=== PATIENT | male | born 1965 | race Hispanic/Latino ===

== ENCOUNTER 2024-01-30 23:13 | Emergency (ER) | payer SELFPAY ==
[2024-01-31 00:46] LABS: PT Prothrombin Time 11.4 SECONDS (9.4-12.5); Protime INR 1.02
[2024-01-31 00:49] LABS: Absolute Eosinophils 0.2 K/uL (0-0.5); Absolute Lymphocytes (CBC) 1.7 K/uL (0.7-4.9); Absolute Monocytes 0.6 K/uL (0.1-1.3); Absolute Neutrophil 4.4 K/uL (1.8-8.0); Basophils % 0.5 % (0-1.3); Eosinophils % 2.5 % (0-4.4); Hematocrit 45.8 % (39.6-49.0); Hemoglobin 15.3 g/dL (13.6-17.9); Lymphocytes % 24.1 % (15.3-44.8); MCH 27.3 pg (27.0-35.0); MCHC 33.5 g/dL (32.0-36.0); MCV 81.4 fL (80-100); MPV 10.2 fL (7.6-11.3); Monocytes % 9.1 % (3.3-12.3); Neutrophils % 63.8 % (41.7-73.7); Nucleated Red Blood Cells % 0.1 % (0-0); Platelets 179 thou/uL (152-406); RBC Red Blood Cell Count 5.62 M/uL (4.33-5.43)
--- NOTE | 2024-01-31 00:55 | ER ---
Nurse's Notes [facility] Name: Lee Salguero Age: 58 yrs Sex: Male : 1965 Arrival Date: 01/30/2024 Time: 23:13 Bed 2 Private MD: Diagnosis: Traumatic subdural hemorrhage;Weakness-Right Arm and Right Leg Presentation: 01/29 23:53 Chief complaint: Patient states: Pain in back of head with movement after a fall off of vc1 the second step of a ladder on week ago. Coronavirus screen: Client denies travel out of the [place] in the last 14 days. Ebola Screen: Patient negative for fever greater than or equal to 101.5 degrees Fahrenheit, and additional compatible Ebola Virus Disease symptoms Patient denies exposure to infectious person. Patient denies travel to an Ebola-affected area in the 21 days before illness onset. No symptoms or risks identified at this time. Initial Sepsis Screen: Does the patient meet any 2 criteria? No. Patient's initial sepsis screen is negative. Does the patient have a suspected source of infection? No. Patient's initial sepsis screen is negative. Risk Assessment: Do you want to hurt yourself or someone else? Patient reports no desire to harm self or others. Onset of symptoms was January 26, 2024. Care prior to arrival: None. Mechanism of Injury: Fall down 2 steps. 23:53 Method Of Arrival: Ambulatory vc1 23:53 Acuity: YOSEF 2 vc1 Historical: - Allergies: 23:57 No Known Allergies; vc1 - Home Meds: 23:57 None [Active]; vc1 - PMHx: 23:57 None; vc1 - PSHx: 23:57 None; vc1 - Immunization history:: Client reports having NOT received the Covid vaccine. - Infectious Disease History:: Denies. - Social history:: Smoking status: Patient denies any tobacco usage or history of. Screenin/31 00:40 [facility] ED Fall Risk Assessment (Adult) History of falling in the last 3 months, mt4 including since admission Yes- single mechanical fall (1 pt) Confusion or Disorientation No (0 pts) Intoxicated or Sedated No (0 pts) Impaired Gait Yes (1 pt) Mobility Assist Device Used No (0 pt) Altered Elimination Score/Fall Risk Level. Abuse screen: Denies injuries from another. Nutritional screening: No deficits noted. Tuberculosis screening: No symptoms or risk factors identified. Exposure risk/Travel Screening: None identified. Primary Survey: 01:04 NO uncontrolled hemorrhage observed. kd3 Assessment: 00:40 General: Appears in no apparent distress. comfortable, well groomed, Behavior is calm, mt4 cooperative, appropriate for age. Pain: Denies pain. Neuro: Level of Consciousness is awake, alert, obeys commands, Oriented to person, place, time, situation, Development Technical Lead are weak on right Weakness in right arm(s) leg(s) Speech slowed speech . Facial symmetry appears normal, Cardiovascular: Capillary refill < 3 seconds. Respiratory: Airway is patent. GI: Abdomen is round non-distended, Abd is non tender. : Denies burning with urination. Derm: Skin is intact, Skin is dry, Skin is pink, warm \T\ dry. Skin temperature is warm. Musculoskeletal: Capillary refill < 3 seconds, Range of motion: right sided weakness in upper and lower extremity. 00:40 Neuro:. mt4 01:23 Reassessment: life flight arrived to tow picker patient and transfer to [facility]. Medications mt4 leaving with patient, sodium chloride 1000ml bolus, keppra 1000mg in 100ml NS 0.9% and mannitol, mannitol was set up but life flight personnel stated they will take over the medication and administration as they have their own machine. patient remains alert and orientated x 4, breathing observed regular and unlabored, Report given to Karena IVORY at [facility]. Vital Signs: 01/29 23:53 BP 136 / 93; Pulse 62; Resp 18; Temp 97; Pulse Ox 98% ; Weight 99.79 kg; Height 5 ft. 8 vc1 in. ; 01/30 00:24 BP 140 / 96; Pulse 54; Resp 16; Temp 97.8; Pulse Ox 99% on R/A; af3 00:40 BP 112 / 73; Pulse 54; Resp 18 S; Temp 97.8(O); Pulse Ox 99% on R/A; Pain 0/10; mt4 01:03 BP 112 / 73; Pulse 55; Resp 16; Pulse Ox 99% on R/A; kd3 01:04 Weight 99.79 kg (R); Height 5 ft. 8 in. ; mt4 01:04 Body Mass Index 33.45 (99.79 kg, 172.72 cm) mt4 00:40 Pain Scale: Adult mt4 Vitals: 00:40 Cardiac Rhythm Assessment Sinus selwyn. mt4 [place] Coma Score: 00:40 Eye Response: spontaneous(4). Motor Response: obeys commands(6). Verbal Response: mt4 oriented(5). Total: 15. Trauma Score (Adult): 00:40 Eye Response: spontaneous(1); Verbal Response: oriented(1); Motor Response: obeys mt4 commands(2); Systolic BP: > 89 mm Hg(4); Respiratory Rate: 10 to 29 per min(4); Christopher Score: 15; Trauma Score: 12 NIH Stroke Scale Scores: 01:00 NIHSS Score: 6 mt4 ED Course: 01/29 23:21 Patient arrived in ED. gm2 23:38 Luis Miguel Santana PA is PHCP. cp 23:38 Wesley Wei MD is Attending Physician. cp 23:57 Triage completed. vc1 23:57 Arm band placed on right wrist. vc1 01/30 00:22 Chanda Saleem, RN is Primary Nurse. kd3 00:23 Inserted saline lock: 20 gauge in right antecubital area, using aseptic technique. af3 Blood collected. Flushed with 10 mL NS. 00:23 Basic Metabolic Panel Sent. af3 00:23 CBC with Diff Sent. af3 00:23 LFT's Sent. af3 00:23 Magnesium Sent. af3 00:23 PT-INR Sent. af3 00:23 Troponin HS Sent. af3 00:24 CT Head C Spine In Process Unspecified. EDMS 00:40 No apparent distress. Resting quietly. transfer approval from receiving facility. mt4 00:40 Allergy band placed. Fall risk band placed. Placed in gown. Bed in low position. Call mt4 light in reach. Side rails up X 1. Adult w/ patient. Provided Education on: fall education, transfer education . Client placed on continuous cardiac and pulse oximetry monitoring. NIBP monitoring applied. traffic monitor specialist on. Pulse ox on. Noise minimized. Lights dimmed. Warm blanket given. Pillow given. Verbal reassurance given. Head of bed elevated. 00:40 No provider procedures requiring assistance completed. Inserted saline lock: 20 gauge mt4 in left antecubital area, using aseptic technique. Flushed with 10 mL NS. Patient maintains SpO2 saturation greater than 95% on room air. 00:43 XRAY Chest (1 view) In Process Unspecified. EDMS 01:32 Patient transferred, IV remains in place. Patient maintains SpO2 saturation greater mt4 than 95% on room air. Administered Medications: 01:14 Drug: Keppra IV 1000 mg IV at calculated rate once Route: IV; Rate: calculated rate; kd3 Site: left antecubital; 01:18 Follow up: IV Status: Infusion continued upon transfer mt4 01:19 Follow up: IV Status: Infusion continued upon transfer mt4 01:14 Drug: Mannitol IV 25% 0.5 g/kg IV at per protocol once; Administer over 2-6 hours kd3 Route: IV; Rate: per protocol; Site: right antecubital; 01:14 Drug: NS 0.9% IV 1000 ml IV at 1 bolus Per protocol; 1000 mL bolus Route: IV; Rate: 1 kd3 bolus; Site: left antecubital; 01:18 Follow up: IV Status: Infusion continued upon transfer mt4 Medication: 00:40 VIS not applicable for this client. mt4 Intake: 01:04 PO: 0ml; Total: 0ml. mt4 Outcome: 00:55 ER care complete, transfer ordered by MD. trammell 01:32 Transferred by helicopter to [facility], mt4 01:32 Condition: stable 01:32 Instructed on the need for transfer, Demonstrated understanding of instructions, follow-up care, medications, 01:35 Patient left the ED. mt4 NIH Stroke Scale - NIH Stroke Score Date: 01/31/2024 Time: 01:00 Total Score = 6 10. Dysarthria (speech clarity - read or repeat words) - 0(Normal) 11. Extinction and Inattention (visual/tactile/auditory/spatial/personal) - 0(No abnormality) 1a. Level of Consciousness (LOC) - 0(Alert) 1b. Level of Consciousness (LOC) (Month \T\ Age) - 0(Both) 1c. LOC Commands (Open \T\ Closes Eyes/Project Consultant) - 0(Both) 2. Best Gaze (Lateral Gaze Paresis) - 0(Normal) 3. Visual Field Loss - 0(No visual loss) 4. Facial Palsy - 1(Minor Paralysis) 5a. Left Arm: Motor (10-second hold) - 0(No drift) 5b. Right Arm: Motor (10-second hold) - 2(Drift, some effort against gravity) 6a. Left Leg: Motor (5-second hold - always test supine) - 0(No drift) 6b. Right Leg: Motor (5-second hold - always test supine) - 1(Drift) 7. Limb Ataxia (finger/nose \T\ heel/hyde - test with eyes open) - 1(Present in one limb) 8. Sensory Loss (pinprick arms/legs/face) - 1(Mild to moderate loss) 9. Best Language: Aphasia (description/naming/reading) - 0(No aphasia) Initials: mt4 Signatures: Dispatcher [employer] EDMS Luis Miguel Santana PA PA cp Doucette, Kyli, RN RN kd3 Kiana Bolden RN RN vc1 Nicole Shabazz gm2 Jennifer Rebolledo RN RN mt4 Carola Pruett3
--- NOTE | 2024-01-31 00:56 | EDPHYS ---
Physician Documentation [facility] Name: Lee Salguero Age: 58 yrs Sex: Male : 1965 Arrival Date: 01/30/2024 Time: 23:13 Bed 2 Private MD: ED Physician Wesley Wei HPI: 01/29 23:57 This 58 yrs old Male presents to ER via Unassigned with complaints of Fall cp Injury. 23:57 Details of fall: The patient fell from a height, from a ladder, off second step onto cp dirt. Onset: The symptoms/episode began/occurred 1 week(s) ago. 23:57 Associated injuries: The patient sustained injury to the head, pain, tenderness. cp 23:57 Severity of symptoms: in the emergency department the symptoms are actually worse. cp Patient c/o weakness to right arm and right leg that started about 2 days after fall from ladder. Historical: - Allergies: 23:57 No Known Allergies; vc1 - Home Meds: 23:57 None [Active]; vc1 - PMHx: 23:57 None; vc1 - PSHx: 23:57 None; vc1 - Immunization history:: Client reports having NOT received the Covid vaccine. - Infectious Disease History:: Denies. - Social history:: Smoking status: Patient denies any tobacco usage or history of. ROS: 23:57 Constitutional: Negative for body aches, chills, fever, poor PO intake, cp 23:57 Eyes: Negative for injury, pain, redness, and discharge, cp 23:57 Neck: Negative for stiffness, 23:57 Cardiovascular: Negative for chest pain, edema, palpitations, 23:57 Respiratory: Negative for cough, shortness of breath, wheezing, 23:57 Abdomen/GI: Negative for abdominal pain, nausea, vomiting, and diarrhea, black/tarry stool, rectal bleeding, 23:57 Back: Negative for pain at rest, pain with movement, 23:57 : Negative for urinary symptoms, difficulty urinating, testicular pain 23:57 Neuro: Positive for headache, weakness, Negative for altered mental status, dizziness, loss of consciousness, syncope, 23:57 All other systems are negative, Exam: 23:59 Constitutional: The patient appears in no acute distress, alert, awake, cp non-diaphoretic, non-toxic, well developed, well nourished, 23:59 Head/Face: Normocephalic, atraumatic. cp 23:59 Eyes: Periorbital structures: appear normal, Pupils: equal, round, and reactive to light and accomodation, Extraocular movements: intact throughout, Conjunctiva: normal, no exudate, no injection, Sclera: no appreciated abnormality, Lids and lashes: appear normal, bilaterally, 23:59 ENT: External ear(s): are unremarkable, Nose: is normal, Mouth: Lips: moist, Oral mucosa: pink and intact, moist, Posterior pharynx: is normal, airway is patent, no erythema, no exudate, 23:59 Neck: C-spine: vertebral tenderness, that is mild, appreciated at C1 and C2, crepitus, is not appreciated, ROM/movement: limited range of motion, is not appreciated, nuchal rigidity, is not appreciated, 23:59 Chest/axilla: Inspection: normal, Palpation: is normal, no crepitus, no tenderness, 23:59 Cardiovascular: Rate: normal, Rhythm: regular, Edema: is not appreciated, JVD: is not appreciated, 23:59 Respiratory: the patient does not display signs of respiratory distress, Respirations: normal, no use of accessory muscles, no retractions, labored breathing, is not present, Breath sounds: are clear throughout, no decreased breath sounds, no stridor, no wheezing, 23:59 Abdomen/GI: Inspection: abdomen appears normal, Palpation: abdomen is soft and non-tender, in all quadrants, 23:59 Back: vertebral tenderness, is not appreciated, 23:59 Neuro: Orientation: to person, place \T\ time. Mentation: is normal, Cerebellar function: Romberg testing is abnormal, right arm and right leg drift, Motor: moves all fours, weakness of right arm and right leg, Sensation: is normal, 01/30 00:40 ECG was reviewed by the Attending Physician. cp Vital Signs: 01/29 23:53 BP 136 / 93; Pulse 62; Resp 18; Temp 97; Pulse Ox 98% ; Weight 99.79 kg; Height 5 ft. 8 vc1 in. ; 01/30 00:24 BP 140 / 96; Pulse 54; Resp 16; Temp 97.8; Pulse Ox 99% on R/A; af3 00:40 BP 112 / 73; Pulse 54; Resp 18 S; Temp 97.8(O); Pulse Ox 99% on R/A; Pain 0/10; mt4 01:03 BP 112 / 73; Pulse 55; Resp 16; Pulse Ox 99% on R/A; kd3 01:04 Weight 99.79 kg (R); Height 5 ft. 8 in. ; mt4 01:04 Body Mass Index 33.45 (99.79 kg, 172.72 cm) mt4 00:40 Pain Scale: Adult mt4 NIH Stroke Scale Scores: 01:00 NIHSS Score: 6 mt4 [place] Coma Score: 00:40 Eye Response: spontaneous(4). Motor Response: obeys commands(6). Verbal Response: mt4 oriented(5). Total: 15. Trauma Score (Adult): 00:40 Eye Response: spontaneous(1); Verbal Response: oriented(1); Motor Response: obeys mt4 commands(2); Systolic BP: > 89 mm Hg(4); Respiratory Rate: 10 to 29 per min(4); Christopher Score: 15; Trauma Score: 12 MDM: 01/29 23:48 Patient medically screened. 01/30 01:10 Data reviewed: vital signs, nurses notes, lab test result(s), EKG, radiologic studies, cp CT scan. 01:10 Differential diagnosis: closed head injury, contusion, fracture, multiple trauma, cp intracranial bleed. I considered the following discharge prescriptions or medication management in the emergency department Medications were administered in the Emergency Department. See MAR. Independent interpretation of the following test(s) in the Emergency Department EKG: See my EKG interpretation above. Counseling: I had a detailed discussion with the patient and/or guardian regarding the historical points, exam findings, and any diagnostic results supporting the discharge/admit diagnosis, lab results, radiology results, the need to transfer to another facility, for higher level of care. 01/29 23:58 Order name: Basic Metabolic Panel; Complete Time: 01:07 01/30 01:07 Interpretation: Normal except: GLUC 125; BUN 22; CRE 1.39; GFR 59. 01/29 23:58 Order name: CBC with Diff; Complete Time: 00:51 01/30 01:08 Interpretation: Normal except: RBC 5.62. 01/29 23:58 Order name: LFT's; Complete Time: 01:07 cp 01/30 01:07 Interpretation: Normal except: BILIT 1.3; BILID 0.3; IBILI, CALC 1.0; GLOB 4.0; A/G 1.0.cp 08 23:58 Order name: Magnesium; Complete Time: 01:07 cp 01/29 23:58 Order name: PT-INR; Complete Time: 00:51 cp 01/29 23:58 Order name: Troponin HS; Complete Time: 01:07 cp 01/29 23:58 Order name: Ptt, Activated; Complete Time: 00:51 cp 01/29 23:58 Order name: CT Head C Spine cp 01/29 23:58 Order name: XRAY Chest (1 view) cp 01/29 23:58 Order name: Cardiac monitoring; Complete Time: 00:23 cp 01/29 23:58 Order name: EKG - Nurse/Tech; Complete Time: 00:37 cp 01/29 23:58 Order name: IV Saline Lock; Complete Time: 00:23 cp 01/29 23:58 Order name: Labs collected and sent; Complete Time: 00:23 cp 01/29 23:58 Order name: O2 Per Protocol; Complete Time: 00:37 cp 01/29 23:58 Order name: O2 Sat Monitoring; Complete Time: 00:23 cp EC:40 Rate is 54 beats/min. Rhythm is regular. MI interval is normal. QRS interval is normal. cp QT interval is normal. T waves are Inverted in lead aVR. Interpreted by me. Reviewed by me. Administered Medications: 01:14 Drug: Keppra IV 1000 mg IV at calculated rate once Route: IV; Rate: calculated rate; kd3 Site: left antecubital; :18 Follow up: IV Status: Infusion continued upon transfer mt4 01:19 Follow up: IV Status: Infusion continued upon transfer mt4 01:14 Drug: Mannitol IV 25% 0.5 g/kg IV at per protocol once; Administer over 2-6 hours kd3 Route: IV; Rate: per protocol; Site: right antecubital; :14 Drug: NS 0.9% IV 1000 ml IV at 1 bolus Per protocol; 1000 mL bolus Route: IV; Rate: 1 kd3 bolus; Site: left antecubital; 01:18 Follow up: IV Status: Infusion continued upon transfer mt4 Disposition: 06:04 Co-signature as Attending Physician, Wesley Wei MD I agree with the assessment sp4 and plan of care. I reviewed the patient's care provided by the Advanced Practice Provider and agree with the diagnosis and treatment plan. Disposition Summary: 01/31/24 00:55 Transfer Ordered Notes: Transfer Location: [facility] cp Reason: Higher level of care cp Condition: Stable cp Problem: new cp Symptoms: have improved cp Accepting Physician: DR Abelardo Saucedo(01/31/24 01:35) mt4 Diagnosis - Traumatic subdural hemorrhage cp - Weakness - Right Arm and Right Leg cp Forms: - Medication Reconciliation Form cp - SBAR form cp NIH Stroke Scale - NIH Stroke Score Date: 01/31/2024 Time: 01:00 Total Score = 6 10. Dysarthria (speech clarity - read or repeat words) - 0(Normal) 11. Extinction and Inattention (visual/tactile/auditory/spatial/personal) - 0(No abnormality) 1a. Level of Consciousness (LOC) - 0(Alert) 1b. Level of Consciousness (LOC) (Month \T\ Age) - 0(Both) 1c. LOC Commands (Open \T\ Closes Eyes/Manager Cosmetics) - 0(Both) 2. Best Gaze (Lateral Gaze Paresis) - 0(Normal) 3. Visual Field Loss - 0(No visual loss) 4. Facial Palsy - 1(Minor Paralysis) 5a. Left Arm: Motor (10-second hold) - 0(No drift) 5b. Right Arm: Motor (10-second hold) - 2(Drift, some effort against gravity) 6a. Left Leg: Motor (5-second hold - always test supine) - 0(No drift) 6b. Right Leg: Motor (5-second hold - always test supine) - 1(Drift) 7. Limb Ataxia (finger/nose \T\ heel/hyde - test with eyes open) - 1(Present in one limb) 8. Sensory Loss (pinprick arms/legs/face) - 1(Mild to moderate loss) 9. Best Language: Aphasia (description/naming/reading) - 0(No aphasia) Initials: mt4 Signatures: Dispatcher [employer] EDMS Luis Miguel Santana PA PA cp Doucette, Kyli, RN RN kd3 Kiana Bolden, RN RN vc1 Wesley Wei MD MD sp4 Jennifer Rebolledo, RN RN mt4 Corrections: (The following items were deleted from the chart) 01/29 23:59 23:59 BASIC METABOLIC PANEL+C.LAB.BRZ ordered. EDMS EDMS 23:59 23:59 CBC+H.LAB.BRZ ordered. EDMS EDMS 23:59 23:59 HEPATIC FUNCTION+C.LAB.BRZ ordered. EDMS EDMS 23:59 23:59 MAGNESIUM+C.LAB.BRZ ordered. EDMS EDMS 23:59 23:59 PROTIME (+INR)+COAG.LAB.BRZ ordered. EDMS EDMS 23:59 23:59 Troponin High Sensitivity+C.LAB.BRZ ordered. EDMS EDMS 23:59 23:59 PTT, ACTIVATED+COAG.LAB.BRZ ordered. EDMS EDMS 23:59 23:59 Chest Single View+RAD.RAD.BRZ ordered. EDMS EDMS 01/30 01:35 00:55 DR Abelardo Saucedo cp mt4
[2024-01-31] MEDS ORDERED: LEVETIRACETAM 500 MG/5 ML VIAL IV ONE (01:01)
[2024-01-31] MEDS ORDERED: NA CHLORIDE 0.9% 1,000 ML ONE (01:02)
[2024-01-31] MEDS ORDERED: NA CHLORIDE 0.9% 100 ML ONE (01:03)
[2024-01-31 01:05] LABS: Anion Gap 8.7 mEq/L (5.0-15.0); Bilirubin Direct 0.3 mg/dL (0-0.2); Bilirubin Total 1.3 mg/dL (0.2-1.0); Magnesium 2.4 mg/dL (1.6-2.4); Potassium 3.7 mEq/L (3.5-5.1); Troponin High Sensitivity 7.9 pg/mL (<58.9)
[2024-01-31] MEDS ORDERED: MANNITOL 25% 0 ML IV ONE (01:07)
[2024-01-31] MEDS ORDERED: MANNITOL 20% 500 ML IV ONE (01:09)
[2024-01-31 01:56] VITALS: TEMP 97.8; O2SAT 99
[2024-01-31 02:02] VITALS: BP 112/73
--- NOTE | 2024-01-31 13:58 | EKG ---
Test Date: 2024-01-31 Test Time: 00:35:24 Abalone Processor: NIKOLAI MEASUREMENT RESULTS: Intervals: Rate: 54 OR: 182 QRSD: 98 QT: 420 QTc: 398 [place]: P: 58 OR: 182 QRS: -27 T: 21 INTERPRETIVE STATEMENTS: Sinus bradycardia Cannot rule out Anterior infarct, age undetermined Abnormal ECG No previous ECG available for comparison Electronically Signed On 01-31-24 13:57:29 CDT by Sajan Gibson
--- NOTE | 2024-02-02 10:16 | RAD REPORT ---
EXAM DESCRIPTION: RAD - Chest Single View - 01/31/2024 12:41 am CLINICAL HISTORY: Right side weakness COMPARISON: None. FINDINGS: 1 view(s) of the chest. Tubes and lines: Leads overlie the chest. Cardiomediastinal silhouette: Atherosclerotic calcification of thoracic aorta. Cardiomegaly Lungs: No consolidation, pneumothorax, or pleural effusion. Left lower lobe calcified granuloma. Bones: No acute osseous abnormality. Degenerative change of the spine. Upper abdomen: No abnormality identified. IMPRESSION: 1. No acute pulmonary process identified. Electronically signed by: Nilson Alcaraz DO 01/31/2024 01:08 AM CDT RP [id number] Due to temporary technical issues with the PACS/Fluency reporting system, reports are being signed by the in house radiologist without review as a courtesy to ensure prompt reporting. The interpreting r adiologist is fully responsible for the content of the report.
--- NOTE | 2024-02-02 10:59 | RAD REPORT ---
EXAM DESCRIPTION: CT - Head C Spine Mpr Wo Con - 01/31/2024 6:39 am CLINICAL HISTORY: 58 years Male, fall TECHNIQUE: Helical CT axial images are obtained of the brain and cervical spine without IV contrast. Multiplanar reconstruction. This exam was performed according to our departmental dose-optimization program, which includes automated exposure control, adjustment of the mA and/or kV according to patie nt size and/or use of iterative reconstruction technique. COMPARISON: None. FINDINGS: BRAIN: BRAIN: Large acute to subacute left subdural hematoma with layering hematocrit effect, greatest trans verse diameter of 3.3 cm, with rightward 9 mm shift. No infarcts. No intra-axial hemorrhage. VENTRICLES: Severe effacement of the left lateral ventricle. No contralateral hydrocephalus. Moderate mass effect on the left suprasellar cisterns. Basilar cisterns are patent. CALVARIUM: Bone windows show no skull fracture or calvarial lesions. PARANASAL SINUSES AND MASTOIDS: Clear paranasal sinuses. Mastoid air cells are clear. CERVICAL SPINE: VERTEBRA: There is straightening of the cervical spine. No acute fracture or subluxation. Cervical vertebra are normal in height. Craniocervical junction is intact. Mild degenerative spurring C4-C6 . Mild posterior discogenic osteophytosis C5-C6 and C6-C7 levels. Mild degenerative changes atlantode ntal interval. DISCS: Mild disc space narrowing C5-C6 and C6-C7 levels. LEVELS: From the C2-C3 through the C7-T1 levels, no significant canal or foraminal stenosis. SOFT TISSUES: Paravertebral soft tissues are unremarkable. IMPRESSION: 1. Large acute to subacute left subdural hematoma with layering hematocrit effect, gre atest transverse diameter of 3.3 cm, with rightward 9 mm shift. 2. No acute fracture or CT evidence of traumatic injury to cervical spine. 3. Straightening of cervical spine. Mild cervical spondylosis. Electronically signed by: Chicho Michel MD 01/31/2024 12:54 AM CDT N Due to temporary technical issues with the PACS/Fluency reporting system, reports are being signed by the in house radiologist without review as a courtesy to ensure prompt reporting. The interpreting r adiologist is fully responsible for the content of the report.
== END 2024-01-31 01:35 | disposition short-term general hospital (02) ==
LOC: ER 23:13
DX: S06.5X0A Traumatic subdural hemorrhage without loss of consciousness, initial encounter (principal); R29.706 NIHSS score 6; W11.XXXA Fall on and from ladder, initial encounter; Z28.310 Unvaccinated for COVID-19
CPT/HCPCS: 36415; 70450; 71045; 72125; 80048; 80076; 83735; 84484; 85025; 85610; 85730; 93005; 99285; J1953; J2150; J7030